=== PATIENT | male | born 1975 | race Two or more races ===

== ENCOUNTER 2018-11-30 19:05 | Emergency (ER) | payer OTHER ==
[~2018-11-30] VITALS: Ht 172.7 cm; Wt 115.2 kg
[2018-11-30] MEDS ORDERED: IBUPROFEN 800 MG TABLET ONE (19:45)
[2018-11-30] MEDS ORDERED: ACETAMINOPHEN 325 MG TABLET ONE (19:45)
[2018-11-30] MEDS ORDERED: IBUPROFEN 800 MG TABLET PO ONE (19:45)
[2018-11-30] MEDS ORDERED: ACETAMINOPHEN 325 MG TABLET PO ONE (19:45)
--- NOTE | 2018-11-30 20:21 | NUR ---
Patient discharged to home in stable conditon. Written and verbal after care instructions given. Patient verbalizes understanding of instructions. Patient ambulated out of ER with stable gait. All belongings taken.
[2018-11-30 20:22] VITALS: BP 114/76
== END 2018-11-30 20:23 | disposition home or self-care (01) ==
LOC: ER 19:07
DX: J11.1 Influenza due to unidentified influenza virus with other respiratory manifestations (principal); R19.7 Diarrhea, unspecified
CPT/HCPCS: 71045; 87400; A4663; J7030